=== PATIENT | male | born 1995 | race Hispanic/Latino ===

== ENCOUNTER 2017-10-06 21:42 | Emergency (ER) | payer MEDICAID ==
[2017-10-06] MEDS ORDERED: KETOROLAC TROMETHAMINE 60 MG/2 ML VIAL ONE (22:11)
[2017-10-06] MEDS ORDERED: AMOXICILLIN 500 MG CAPSULE PO ONE (22:11)
== END 2017-10-06 23:03 | disposition home or self-care (01) ==
LOC: EDH 21:42
DX: S02.5XXA Fracture of tooth (traumatic), initial encounter for closed fracture (principal); X58.XXXA Exposure to other specified factors, initial encounter; Y93.89 Activity, other specified; Y92.89 Other specified places as the place of occurrence of the external cause; Y99.8 Other external cause status
CPT/HCPCS: 96372; 99283; J1885